=== PATIENT | female | born 1980 | race Caucasian/White ===

== ENCOUNTER 2024-09-11 19:44 | Emergency (ER) | payer BC ==
[2024-09-11] MEDS ORDERED: predniSONE 20 MG Tab PO ONE (19:45)
== END 2024-09-11 20:22 | disposition home or self-care (01) ==
LOC: FB.ED 19:44
DX: M25.461 Effusion, right knee (principal); F17.210 Nicotine dependence, cigarettes, uncomplicated; Z88.6 Allergy status to analgesic agent; Z88.8 Allergy status to other drugs, medicaments and biological substances; Z90.49 Acquired absence of other specified parts of digestive tract; Z90.710 Acquired absence of both cervix and uterus
CPT/HCPCS: 99283; J7512

== ENCOUNTER 2025-06-01 22:01 | Emergency (ER) | payer BC ==
[2025-06-01] MEDS ORDERED: Sodium Chloride 0.9% 10 ML Syringe FLUSH PRN (22:17)
[2025-06-01] MEDS: Ondansetron 4 MG/2 ML SDV IVPUSH ONE (22:27)
[2025-06-01] MEDS: HYDROmorphone 2 MG/ML SDV IVPUSH ONE (22:28)
[2025-06-01] MEDS: Dexamethasone 4 MG/ML SDV IVPUSH ONE (22:30)
[2025-06-01] MEDS: diphenhydrAMINE 50 MG/ML SDV IVPUSH ONE (22:32)
== END 2025-06-01 23:16 | disposition home or self-care (01) ==
LOC: FB.ED 22:01
DX: G43.411 Hemiplegic migraine, intractable, with status migrainosus (principal); E86.0 Dehydration; Z88.5 Allergy status to narcotic agent; Z88.8 Allergy status to other drugs, medicaments and biological substances; Z90.49 Acquired absence of other specified parts of digestive tract; Z90.710 Acquired absence of both cervix and uterus
CPT/HCPCS: 96374; 96375; 99284; 99284-25; J1100; J1171; J1200; J2405